=== PATIENT | male | born 2005 | race Hispanic/Latino ===

== ENCOUNTER 2024-09-15 16:52 | Emergency (ER) | payer OTHER ==
[~2024-09-15] VITALS: Ht 177.8 cm; Wt 68.0 kg
[2024-09-15] MEDS: HYDROCODONE/APAP 10MG-325MG TAB PO ONE (17:19)
[2024-09-15] MEDS ORDERED: ULTRAM 50MG50 MG PO (17:37)
[2024-09-15 17:45] VITALS: PULSE 76; RESP 16; TEMP 98.6; O2SAT 98
== END 2024-09-15 17:45 | disposition home or self-care (01) ==
LOC: ER 17:03
DX: G89.18 Other acute postprocedural pain (principal); R10.30 Lower abdominal pain, unspecified; Z87.442 Personal history of urinary calculi
CPT/HCPCS: 99283